=== PATIENT | female | born 1965 | race Caucasian/White ===

== ENCOUNTER 2020-02-28 13:13 | Outpatient (REF) | payer OTHER, SELFPAY ==
--- NOTE | 2020-02-28 13:07 | CT_ITS ---
EXAMINATION: CT ABDOMEN AND PELVIS WITH CONTRAST CLINICAL INFORMATION: Epigastric pain. Follow-up abnormal ultrasound. COMPARISON: Previous abdominal ultrasound 01/30/2020 TECHNIQUE: Multidetector volumetric images were obtained from the superior aspect of the liver through the pubic symphysis following administration 85 mL of Omnipaque 350 intravenous contrast. Sagittal and coronal reformatted images were obtained on the technologist's workstation. Oral contrast: Yes This CT examination was performed using dose optimization techniques as appropriate, variously including the following: *Automated exposure control *Adjustment of mA and/or kV according to patient size (this includes techniques or standardized protocols for targeted exams where dose is matched to indication/reason for exam; i.e. extremities or head) *Use of iterative reconstruction technique DLP: 541 mGy-cm FINDINGS: LUNG BASES: The visualized lung bases are unremarkable. LIVER, GALLBLADDER, AND BILIARY TREE: The liver is normal in size, shape, and attenuation. No focal hepatic lesion or biliary ductal dilatation is present. The gallbladder is unremarkable with no evidence of radiopaque gallstones, gallbladder wall thickening, or obvious pericholecystic inflammatory changes. PANCREAS: Unremarkable. SPLEEN: Unremarkable. ADRENAL GLANDS: Unremarkable. KIDNEYS AND URETERS: The kidneys are normal in size, shape, and attenuation. No hydronephrosis, hydroureter, or calculi seen. No perinephric stranding. BLADDER: Unremarkable. GASTROINTESTINAL TRACT: The small and large bowel are unremarkable. The appendix is unremarkable. ABDOMINAL WALL: No significant hernia is appreciated. LYMPH NODES: There are small retroperitoneal lymph nodes. No enlarged lymph nodes are seen. There is no ascites. VASCULAR: Unremarkable. PELVIC VISCERA: Unremarkable. OSSEOUS STRUCTURES: There are degenerative changes of the spine. IMPRESSION: Unremarkable exam. Small retroperitoneal lymph nodes. No enlarged lymph nodes or mass seen.
[2020-02-28] MEDS: iohexoL 350 MG/ML 100 ML INFUS..BTL IV (15:49)
[2020-02-28] MEDS: Barium Sulfate Oral (Vanilla) 450 ML ORAL.SUSP 900 ML PO (15:51)
== END 2020-02-28 13:14 | disposition home or self-care (01) ==
LOC: HO.CT 13:13
PROVIDERS: PCP Family Medicine; Visit Provider Nurse Practitioner
DX: R93.5 Abnormal findings on diagnostic imaging of other abdominal regions, including retroperitoneum (principal); R10.13 Epigastric pain
CPT/HCPCS: 74177

== ENCOUNTER 2020-03-21 07:36 | Day surgery (SDC) | payer OTHER, SELFPAY ==
[2020-03-15 11:27] VITALS: BMI 27.6
--- NOTE | 2020-03-20 12:28 | P.CONAN_ITS ---
Documented by User: Rachel Aquino 03/20/20 12:29 HPI - Anesthesia Eval Consult details Narrative: 55yo F for Upper Endoscopy COUNT INCLUDES THE [facility] Past Medical History Medical History Asthma Back pain Depression GERD (gastroesophageal reflux disease) Hepatitis Hx of anxiety disorder Hx of cardiac murmur Hx of degenerative disc disease Hx of multiple concussions Surgical History Surgical History H/O colonoscopy Social History Social History Smoking Status: Former smoker Smoked in Last 30 Days: No Smoking Quit Date: age 53 Use of substances other than those prescribed or required for medical reasons: No Have you been hit, kicked, punched, or otherwise hurt by someone within the past year? If so, by whom?: No Advance Directives Information Provided: No Advance Directives Date on File: 02/28/20 Recently lost weight without trying: No Meds Allergies Allergy/AdvReac Type Severity Reaction Status Date / Time No Known Allergies Allergy Verified 03/15/20 11:32 [No Known Allergies*] Home Medications Medication Instructions Recorded Confirmed Type escitalopram oxalate 5 mg PO DAILY 03/15/20 03/15/20 History estradiol 10 mcg VAGINAL 2XW 03/15/20 03/15/20 History eszopiclone 1 mg PO BEDTIME 03/15/20 03/15/20 History lorazepam 0.5 mg PO BID 03/15/20 03/15/20 History omeprazole 40 mg PO QPM 03/15/20 03/15/20 History Exam Exam Date and Time: March 20, 2020 1228 Height,Weight and Vital Signs: Height 5 ft 5.5 in Weight 76.657 kg Assessment and Plan Assessment Anesthesia Assessment: Chart Reviewed Documented by User: Mone Tierney 03/21/20 08:00 COUNT INCLUDES THE [facility] Past Medical History Medical History Asthma Back pain Depression GERD (gastroesophageal reflux disease) Hepatitis Hx of anxiety disorder Hx of cardiac murmur Hx of degenerative disc disease Hx of multiple concussions Surgical History Surgical History H/O colonoscopy Social History Social History Smoking Status: Former smoker Smoked in Last 30 Days: No Smoking Quit Date: age 53 Use of substances other than those prescribed or required for medical reasons: No Have you been hit, kicked, punched, or otherwise hurt by someone within the past year? If so, by whom?: No Advance Directives Information Provided: No Advance Directives Date on File: 02/28/20 Recently lost weight without trying: No Meds Allergies Allergy/AdvReac Type Severity Reaction Status Date / Time No Known Allergies Allergy Verified 03/15/20 11:32 [No Known Allergies*] Home Medications Medication Instructions Recorded Confirmed Type escitalopram oxalate 5 mg PO DAILY 03/15/20 03/15/20 History estradiol 10 mcg VAGINAL 2XW 03/15/20 03/15/20 History eszopiclone 1 mg PO BEDTIME 03/15/20 03/15/20 History lorazepam 0.5 mg PO BID 03/15/20 03/15/20 History omeprazole 40 mg PO QPM 03/15/20 03/15/20 History Exam Airway Mallampati Class: II TM Dist: >3cm Neck ROM: Full
[2020-03-21] MEDS: Lactated Ringers 1,000 ML 100 ML IVCONT (08:22)
--- NOTE | 2020-03-21 08:42 | MHC.SHP ---
Pre-Procedural Eval Section B Chief Complaint: EPIGASTRIC PAIN Relevant Family History (Specify if Yes): No Relevant Social History: Tobacco Use Present Medications: see Short Stay Collaborative assessment Medical History: Significant History (asthma, gerd, anxiety, ) History of Previous Operations: No relevant previous surgery Allergies: Allergies Allergy/AdvReac Type Severity Reaction Status Date / Time No Known Allergies Allergy Verified 03/15/20 11:32 [No Known Allergies*] Review of Systems Sugical H&P ROS: Negative: Constitution, Cardiovascular, Respiratory, Neurological, Psychiatric, Hem-Onc, Allergic/Immunologic, Gastrointestinal, Genitourinary, Musculoskeletal, Integumentary, Endocrine and Eyes/Ears/Nose/Throat Exam Surgical H&P Exam: Normal: HEENT, Normal: Heart, Normal: Lungs, Normal: Extremities, Normal: Abdomen, Normal: Skin and Normal: Neurological Plan Diagnosis/Plan: Unchanged Patient has been examined and remains a candidate for the planned procedure
--- NOTE | 2020-03-21 08:57 | PM.OP ---
Brief Operative Note Date of procedure: 03/21/20 Pre-op diagnosis: epigastric pain Post-op diagnosis: same Procedure: see op note Surgeon: Eh Henao MD Anesthesia: MAC Estimated blood loss (mL): 0 Condition: stable Disposition: PACU
--- NOTE | 2020-03-21 08:58 | W.PM.OPN ---
Operative Note Operative Note Narrative: Procedure Description: EGD FLEXIBLE TRANSORAL UPPER GASTROINTESTINAL ENDOSCOPY UPPER ENDOSCOPY Consent: Indications for the procedure and potential complications of bleeding, perforation, reaction to medications and missed diagnosis were discussed with the patient and informed consent was obtained. Instrument: Olympus GIF H 190 J mid size upper endoscope Monitoring: Vital signs and clinical assessment, continuous EKG monitoring, Pulse oximetry, Carbon Dioxide monitoring and blood pressure monitoring were done throughout the procedure. Procedure: The patient was placed in the left lateral decubitis position and pre-procedure medications were administered and a bite block was placed. The endoscope was inserted into the mouth and advanced under direct vision to the third part of duodenum. A careful inspection was made as the upper endoscope was withdrawn including a retroflexed examination of the proximal stomach; Findings and interventions are described below. Findings: Larynx:normal Esophagus: GE junction at 40 cm, diaphragm hiatus at 40 cm, no varices or esophagitis but LES is lax. Stomach: Patchy gastric erythema. Biopsies were obtained. Grade 2 flap valve on retroflexed examination of the cardia. Duodenum: bulbar duodenitis, bx taken Intervention: Biopsies as noted above Impression/Findings: gastritis duodenitis PLAN: cont with PPI, feels much better with it, can increase dose if needed if h pylori pos then treat note the Ct with peripancreatic LN, advised to get MRI pancreas protocol in 3-6 months time, smoking cessation reflux precautions
[2020-03-21 09:01] VITALS: BP 103/44; PULSE 58; RESP 18; TEMP 36.3
[2020-03-21 09:16] VITALS: BP 105/64; PULSE 56; RESP 16; TEMP 36.3; O2SAT 98
--- NOTE | 2020-03-21 09:38 | HO.POSTANES ---
Post Anesthesia Evaluation Post Anesthesia Evaluation Vital Signs: Vital Signs Temp Pulse Resp BP Pulse Ox 03/21/20 09:16 97.3 F 56 16 105/64 98 03/21/20 09:01 97.3 F 58 18 103/44 L Anesthesia: Monitored Mental Status: Awake Pain Control: Satisfactory Nausea/Vomiting: None Hydration: Adequate Anesthesia-Related Issues: No Anes. Related Issues
== END 2020-03-21 09:55 | disposition home or self-care (01) ==
PROVIDERS: PCP Family Medicine; Visit Provider Internal Medicine Gastroenterology
PROC: 0DJ08ZZ Inspection of Upper Intestinal Tract, Via Natural or Artificial Opening Endoscopic (ICD-10-PCS; CPT 43235; principal; 2020-03-21 08:30)
DX: R10.13 Epigastric pain (principal); K21.9 Gastro-esophageal reflux disease without esophagitis; K29.50 Unspecified chronic gastritis without bleeding; K44.9 Diaphragmatic hernia without obstruction or gangrene; F32.9 Major depressive disorder, single episode, unspecified; Z79.899 Other long term (current) drug therapy
CPT/HCPCS: 43239; 88305; 88342; J3010

== ENCOUNTER 2020-03-23 15:16 | Emergency (ER) | payer OTHER, SELFPAY ==
[2020-03-23 16:38] VITALS: BP 115/75; PULSE 59; RESP 20; TEMP 36.3; O2SAT 97; BMI 26.6
[2020-03-23 19:59] LABS: MANUAL DIFF FLAG NO
[2020-03-23 20:02] LABS: Basophils Percent Auto 0.7 % (0-2); Eosinophils Absolute Auto 0.1 X10*3/uL (0.0-0.4); Eosinophils Percent Auto 2.4 % (0-4); Hematocrit 38.7 % (37-47); Imm Gran Abs Auto 0.01 X10*3/uL (0.00-0.03); Imm Gran Pct Auto 0.2 % (0.0-0.4); Lymphocytes Absolute Auto 3.1 X10*3/uL (1.2-4.9); Lymphocytes Percent Auto 51.5 % (20-40); Mean Corpuscular HGB Conc 33.6 g/dl (31.0-35.0); Mean Corpuscular Hemoglobin 31.2 pg (27.0-33.0); Mean Corpuscular Volume 92.8 fL (80-98); Mean Platelet Volume 8.8 fL (9.4-12.3); Monocytes Absolute Auto 0.5 X10*3/uL (0.1-1.2); Monocytes Percent Auto 7.6 % (2-11); Neutrophils Absolute Auto 2.2 X10*3/uL (2.0-8.3); Neutrophils Percent Auto 37.6 % (45-73); Platelet Count 244 X10*3/uL (160-400); Red Blood Count 4.17 X10*6/uL (4.20-5.50); Red Cell Distribution Width 11.7 % (11.0-16.0); White Blood Count 5.9 X10*3/uL (4.8-10.8)
[2020-03-23 20:37] LABS: Alanine Aminotransferase 22 U/L (0-31); Albumin Level 4.6 g/dL (3.5-5.0); Alkaline Phosphatase 61 U/L (39-117); Anion Gap 11 (12-20); Aspartate Amino Transferase 25 U/L (5-31); Bilirubin Total 0.6 mg/dL (0.0-1.0); Blood Urea Nitrogen 12 mg/dL (9-16); Calcium 9.1 mg/dL (8.4-10.2); Carbon Dioxide 31 mmol/L (22-29); Chloride 104 mmol/L (96-108); Creatinine Clr Calc Pharmacy 70.4; Estimated Glomerular Filt Rate > 60; Glucose Random 82 mg/dL (60-115); Potassium 4.3 mmol/l (3.3-5.1); Sodium 142 mmol/L (135-145); Total Protein 7.2 g/dL (6.5-8.0)
--- NOTE | 2020-03-23 21:14 | ED.ABDPAIN ---
HPI - Abdominal Pain General Chief Complaint: Abdominal Pain Stated Complaint: abdominal pain Time Seen by Provider: 03/23/20 20:34 Source: patient Mode of arrival: ambulatory Limitations: no limitations History of Present Illness HPI narrative: patient with history of chronic gastritis had upper endoscopy done 3 days ago which showed severe duodenitis since then patient complaining of increased pain in epigastric area associated with nausea no black stools no vomiting no fever no diarrhea MD elicited complaint: abdominal pain Onset (ago): day(s) (3) Pain Consistency: constant Location: epigastric Severity: moderate Quality: sharp Radiation: epigastric Migration to: no migration Exacerbating factors: eating Relieving factors: nothing Associated symptoms: nausea Related Data Home Medications Medication Instructions Recorded Confirmed escitalopram oxalate 5 mg PO DAILY 03/15/20 03/21/20 estradiol 10 mcg VAGINAL 2XW 03/15/20 03/21/20 eszopiclone 1 mg PO BEDTIME 03/15/20 03/21/20 lorazepam 0.5 mg PO BID 03/15/20 03/21/20 omeprazole 40 mg PO QPM 03/15/20 03/21/20 Previous Rx's Medication Instructions Recorded oxycodone 5 mg PO Q6H PRN #14 tab 03/24/20 sucralfate 1 g PO TID #90 tab 03/24/20 Allergies Allergy/AdvReac Type Severity Reaction Status Date / Time No Known Allergies Allergy Verified 03/15/20 11:32 [No Known Allergies*] Review of Systems Review of Systems REVIEW OF SYSTEMS: Pertinent positives and negatives are stated above in the history. GEN: no fevers, chills, fatigue HEENT: no nasal congestion, sore throat, ear pain NEURO: no headache, dizziness, focal weakness PULM: no cough, shortness of breath CV: no chest pain, palpitations, LE edema ABD: no vomiting, diarrhea, melena : no dysuria, urgency, frequency SKIN: no rash ROS otherwise negative x 10 Physical Exam Vital Signs: Vital Signs: Last Vital Signs Temp 97.4 F 03/23/20 16:38 Pulse 59 03/23/20 16:38 Resp 20 03/23/20 16:38 BP 115/75 03/23/20 16:38 Pulse Ox 97 03/23/20 16:38 Body Mass Index 26.6 Appearance: Alert. Oriented X3. No acute distress. Eyes: Pupils equal, round and reactive to light. ENT: Pharynx normal. Neck: Normal inspection. Neck supple. CVS: Normal heart rate and rhythm. Pulses normal. Respiratory: No respiratory distress. Breath sounds normal. Abdomen: Soft and moderate tenderness in epigastric area no rebound tenderness no mass palpable bowel sounds are present no CVA tenderness Skin: Skin warm and dry. Normal skin color. Normal skin turgor. Extremities: No lower extremity edema. Good range of movement Neuro: Oriented X 3. No motor deficit. No sensory deficit. Course Course Course Narrative: patient is still complaining of pain in epigastric area without much response to lidocaine viscous and Maalox labs are stable. Will do CT scan to see if any significant duodenal inflammation MDM - Abdominal Pain Differential Diagnosis Differential diagnosis: Likely gastritis, pancreatitis and peptic ulcer disease Medical Records Attestation: I reviewed the patient's medical records. Lab Data Attestation: I reviewed the patient's lab results. Result diagrams: 03/23/20 19:52 03/23/20 19:52 Labs: Lab Results 03/23/20 03/23/20 03/23/20 Range/Units 19:52 19:52 19:52 WBC 5.9 (4.8-10.8) X10*3/uL RBC 4.17 L (4.20-5.50) X10*6/uL Hgb 13.0 (12.0-16.0) g/dl Hct 38.7 (37-47) % MCV 92.8 (80-98) fL MCH 31.2 (27.0-33.0) pg MCHC 33.6 (31.0-35.0) g/dl RDW 11.7 (11.0-16.0) % Plt Count 244 (160-400) X10*3/uL MPV 8.8 L (9.4-12.3) fL Immature Gran % (Auto) 0.2 (0.0-0.4) % Neut % (Auto) 37.6 L (45-73) % Lymph % (Auto) 51.5 H (20-40) % [place] % (Auto) 7.6 (2-11) % Eos % (Auto) 2.4 (0-4) % Baso % (Auto) 0.7 (0-2) % Lymph # (Auto) 3.1 (1.2-4.9) X10*3/uL [place] # (Auto) 0.5 (0.1-1.2) X10*3/uL Eos # (Auto) 0.1 (0.0-0.4) X10*3/uL Baso # (Auto) 0.0 (0.0-0.2) X10*3/uL Abs Immat Gran (auto) 0.01 (0.00-0.03) X10*3/uL Absolute Neuts (auto) 2.2 (2.0-8.3) X10*3/uL Absolute Nucleated RBC 0.000 (0.0-0.012) X10*3/uL Nucleated RBC % (auto) 0.0 (0.0-0.2) /100WBC Hold Blue Top SEE NOTE Sodium 142 (135-145) mmol/L Potassium 4.3 (3.3-5.1) mmol/l Chloride 104 (96-108) mmol/L Carbon Dioxide 31 H (22-29) mmol/L Anion Gap 11 L (12-20) BUN 12 (9-16) mg/dL Creatinine 0.89 (0.5-1.4) mg/dL Estim Creat Clear Calc 70.4 Estimated GFR > 60 Random Glucose 82 (60-115) mg/dL Calcium 9.1 (8.4-10.2) mg/dL Total Bilirubin 0.6 (0.0-1.0) mg/dL AST 25 (5-31) U/L ALT 22 (0-31) U/L Alkaline Phosphatase 61 (39-117) U/L Total Protein 7.2 (6.5-8.0) g/dL Albumin 4.6 (3.5-5.0) g/dL Lipase 16 (8-78) U/L Discharge Plan Discharge Clinical Impression: Gastritis and duodenitis Patient Disposition: Home, Self-Care Instructions: Gastritis (ED) Additional Instructions: follow-up with steward/stewardess wine and continue to take your Prilosec will start on sucralfate also and oxycodone for severe pain Prescriptions: New sucralfate 1 gram tablet 1 g PO TID Qty: 90 RF: 0 oxycodone 5 mg tablet 5 mg PO Q6H PRN (Reason: pain) Qty: 14 RF: 0 No Action omeprazole 40 mg Capsule,Delayed Release(Dr/Ec) 40 mg PO QPM RF: 0 lorazepam 0.5 mg Tablet 0.5 mg PO BID RF: 0 escitalopram oxalate 5 mg Tablet 5 mg PO DAILY RF: 0 eszopiclone 1 mg Tablet 1 mg PO BEDTIME RF: 0 estradiol 10 mcg Tablet 10 mcg VAGINAL 2XW RF: 0 PMFSH Past Medical History Medical History Asthma Back pain Depression GERD (gastroesophageal reflux disease) Hepatitis Hx of anxiety disorder Hx of cardiac murmur Hx of degenerative disc disease Hx of multiple concussions Surgical History H/O colonoscopy Social History Social History Smoking Status: Former smoker Advance Directives: Yes Advance Directives on File: Yes Advance Directives Date on File: 02/28/20
[2020-03-23] MEDS: ondansetron HCL 4 MG/2 ML VIAL IVPUSH (22:52)
[2020-03-23] MEDS: Famotidine/PF 20 MG/2 ML VIAL IVPUSH (22:52)
[2020-03-23] MEDS: Magnesium Hydrox/Alum Hydrox 30 ML ORAL.SUSP PO (22:53)
[2020-03-23] MEDS: 0.9 % Sodium Chloride 1,000 ML 999 ML IVCONT (22:53)
[2020-03-23] MEDS: Lidocaine HCl Viscous 2 % 15 ML SOLUTION 30 ML MUCOUS MEM (22:53)
[2020-03-23 22:59] LABS: Lipase 16 U/L (8-78)
--- NOTE | 2020-03-23 23:15 | CT_ITS ---
EXAMINATION: CT ABDOMEN AND PELVIS WITHOUT CONTRAST CLINICAL INFORMATION: Upper abdominal pain following biopsy. COMPARISON: 02/28/2020. TECHNIQUE: Contiguous axial thin section helical images of the abdomen and pelvis were performed without oral or IV contrast. The data set was reformatted in the coronal and sagittal planes and reviewed on an independent workstation. DLP: 610 mGy-cm. FINDINGS: There is mild bibasilar atelectasis. The visualized lung bases are otherwise clear. The visualized portions of the heart are unremarkable. The liver is of normal size and attenuation without focal lesions nor intrahepatic biliary ductal dilation. A normal gallbladder is identified. There is no wall thickening or discernible pericholecystic fluid. The spleen, pancreas, adrenal glands are unremarkable. Both kidneys are of normal size and attenuation without hydronephrosis or nephrolithiasis. There is no abdominal free fluid. There is neither mesenteric nor retroperitoneal lymphadenopathy. Normal unopacified loops of small and large bowel are identified. A normal appendix is identified. There is no pelvic free fluid. The urinary bladder is unremarkable. There is neither pelvic nor inguinal lymphadenopathy. Bone windows: Neither sclerotic nor lytic bone lesions are identified. CT/CT abdomen pelvis wo con IMPRESSION: No evidence for acute abdominal or pelvic inflammatory or infectious processes. No significant abdominal or pelvic free fluid. Automated exposure control (Care Dose) Adjustment of the mA and/or kv according to patient size (this includes techniques or standardized protocols for targeted exams where dose is matched to indication / reason for exam; i.e. extremities or head).
== END 2020-03-24 01:11 | disposition home or self-care (01) ==
PROVIDERS: Emergency Provider Internal Medicine
DX: K29.70 Gastritis, unspecified, without bleeding (principal); K29.80 Duodenitis without bleeding; R10.13 Epigastric pain; Z79.899 Other long term (current) drug therapy; Z87.891 Personal history of nicotine dependence
CPT/HCPCS: 36415; 74176; 80053; 83690; 85025; 96361; 96374; 96375; 99283; 99284; J2405

== ENCOUNTER 2020-03-27 14:00 | Outpatient (REF) | payer OTHER, SELFPAY ==
[2020-03-27 17:46] LABS: MANUAL DIFF FLAG NO
[2020-03-27 18:02] LABS: Basophils Percent Auto 0.8 % (0-2); Eosinophils Absolute Auto 0.1 X10*3/uL (0.0-0.4); Eosinophils Percent Auto 2.3 % (0-4); Hematocrit 39.8 % (37-47); Hemoglobin 13.2 g/dl (12.0-16.0); Imm Gran Abs Auto 0.01 X10*3/uL (0.00-0.03); Imm Gran Pct Auto 0.2 % (0.0-0.4); Lymphocytes Absolute Auto 2.4 X10*3/uL (1.2-4.9); Lymphocytes Percent Auto 44.6 % (20-40); Mean Corpuscular HGB Conc 33.2 g/dl (31.0-35.0); Mean Corpuscular Hemoglobin 30.8 pg (27.0-33.0); Mean Corpuscular Volume 92.8 fL (80-98); Mean Platelet Volume 9.5 fL (9.4-12.3); Monocytes Absolute Auto 0.5 X10*3/uL (0.1-1.2); Monocytes Percent Auto 9.1 % (2-11); Neutrophils Absolute Auto 2.3 X10*3/uL (2.0-8.3); Platelet Count 255 X10*3/uL (160-400); Red Blood Count 4.29 X10*6/uL (4.20-5.50); Red Cell Distribution Width 11.8 % (11.0-16.0); White Blood Count 5.3 X10*3/uL (4.8-10.8)
[2020-03-27 18:12] LABS: Alanine Aminotransferase 24 U/L (0-31); Albumin Level 4.7 g/dL (3.5-5.0); Alkaline Phosphatase 60 U/L (39-117); Amylase 62 U/L (28-100); Anion Gap 12 (12-20); Aspartate Amino Transferase 28 U/L (5-31); Bilirubin Direct 0.2 mg/dL (0.0-0.5); Bilirubin Total 0.6 mg/dL (0.0-1.0); Blood Urea Nitrogen 10 mg/dL (9-16); C Reactive Protein 0.09 mg/dL (< or = 0.50); Calcium 9.5 mg/dL (8.4-10.2); Carbon Dioxide 31 mmol/L (22-29); Chloride 100 mmol/L (96-108); Estimated Glomerular Filt Rate > 60; Glucose Random 76 mg/dL (60-115); Lipase 17 U/L (8-78); Potassium 4.1 mmol/l (3.3-5.1); Sodium 139 mmol/L (135-145); Total Protein 7.3 g/dL (6.5-8.0)
== END 2020-03-27 14:01 | disposition home or self-care (01) ==
LOC: HO.LAB 14:00
PROVIDERS: PCP Family Medicine; Visit Provider Internal Medicine Gastroenterology
DX: R10.13 Epigastric pain (principal)
CPT/HCPCS: 36415; 80048; 80076; 82150; 83690; 85025; 86140

== ENCOUNTER 2020-03-30 08:03 | Outpatient (REF) | payer OTHER, SELFPAY ==
[2020-03-30 08:34] LABS: COVID-19 Test Negative (Negative); IDNOW Serial# 55D5AD1C
== END 2020-03-30 08:04 | disposition home or self-care (01) ==
LOC: HO.EMPCOV 08:03
PROVIDERS: PCP Family Medicine; Visit Provider Internal Medicine
DX: Z20.828 Contact with and (suspected) exposure to other viral communicable diseases (principal)
CPT/HCPCS: 87635; C9803

== ENCOUNTER 2020-04-02 08:01 | Outpatient (REF) | payer OTHER, SELFPAY ==
[2020-04-02 09:31] LABS: COVID-19 Test Negative (Negative)
== END 2020-04-02 08:02 | disposition home or self-care (01) ==
LOC: HO.EMPCOV 08:01
PROVIDERS: Visit Provider Internal Medicine
DX: Z20.828 Contact with and (suspected) exposure to other viral communicable diseases (principal)
CPT/HCPCS: 87635; C9803

== ENCOUNTER → 2020-04-06 09:08 | Outpatient (BNVA) | payer OTHER, SELFPAY | PROVIDERS: PCP Family Medicine; Referring Provider Family Medicine; Visit Provider Internal Medicine Gastroenterology | DX: Z76.89 Persons encountering health services in other specified circumstances (principal) ==

== ENCOUNTER → 2020-07-06 09:28 | Outpatient (BNVA) | payer OTHER, SELFPAY | PROVIDERS: PCP Family Medicine; Visit Provider Internal Medicine Gastroenterology ==

== ENCOUNTER 2020-09-21 11:49 | Outpatient (REF) | payer OTHER, SELFPAY | END 2020-09-21 11:50 | disposition home or self-care (01) | LOC: HO.LAB 11:49 | PROVIDERS: PCP Family Medicine; Visit Provider Internal Medicine Gastroenterology | DX: R10.13 Epigastric pain (principal); Z91.018 Allergy to other foods | CPT/HCPCS: 36415; 86003 ==

== ENCOUNTER → 2020-10-26 11:52 | Outpatient (BNVA) | payer OTHER, SELFPAY | PROVIDERS: PCP Family Medicine; Visit Provider Internal Medicine Gastroenterology ==

== ENCOUNTER 2020-12-05 09:27 | Outpatient (REF) | payer OTHER, SELFPAY | END 2020-12-05 09:28 | disposition home or self-care (01) | LOC: HO.LAB 09:27 | PROVIDERS: Visit Provider Internal Medicine Gastroenterology | DX: R10.13 Epigastric pain (principal); Z91.018 Allergy to other foods | CPT/HCPCS: 36415; 86003 ==

== ENCOUNTER → 2021-02-26 11:12 | Outpatient (BNVA) | payer OTHER, SELFPAY | PROVIDERS: PCP Family Medicine; Visit Provider Internal Medicine Gastroenterology ==

== ENCOUNTER → 2021-09-04 10:34 | Outpatient (BNVA) | payer OTHER, SELFPAY | PROVIDERS: PCP Family Medicine | DX: Z13.89 Encounter for screening for other disorder (principal) | CPT/HCPCS: 73140; 99204 ==

== ENCOUNTER → 2021-09-12 11:51 | Outpatient (BNVA) | payer OTHER, SELFPAY | PROVIDERS: PCP Family Medicine; Visit Provider Physician Assistant | DX: Z13.89 Encounter for screening for other disorder (principal) | CPT/HCPCS: 99213 ==